=== PATIENT | male | born 1960 | race Caucasian/White ===

== ENCOUNTER → 2021-04-01 | Outpatient (REF) ==
--- NOTE | 2021-04-01 14:32 | REP ---
INDICATION: PAIN. COMPARISON: None. TECHNIQUE: AP, lateral, swimmer's and open mouth views of the cervical spine FINDINGS: Evaluation is significantly limited beyond the C4-5 level due to positioning and overlying soft tissue opacities. Osteopenia and moderate multilevel degenerative changes are suggested along with mild chronic 3 mm of anterolisthesis at C4-5 along with minimal endplate sclerosis and subtle disc space narrowing. IMPRESSION: Limited examination with findings as described above. If the patient remains symptomatic consider CT or MRI for further investigation <Electronically signed by Jeevan Boudreaux > 04/01/21 [id number]
--- NOTE | 2021-04-01 14:37 | REP ---
INDICATION: PAIN COMPARISON: None. TECHNIQUE: AP, lateral, coned-down views of the lumbar spine. FINDINGS: Alignment is maintained. Osteopenia and moderate multilevel degenerative changes are appreciated. Findings include chronic Schmorl's node along the superior endplate of L4 as well as very subtle chronic appearing compression deformity at L1 with less than 5% loss of superior vertebral body height. Disc spaces are relatively well maintained. IMPRESSION: 1. Age-related osteopenia and moderate multilevel degenerative changes <Electronically signed by Jeevan Boudreaux > 04/01/21 [id number]
== END ==
LOC: M PLAIMG 13:51
PROVIDERS: ATTEND Internal Medicine
DX: M81.0 Age-related osteoporosis without current pathological fracture (principal); M51.36 Other intervertebral disc degeneration, lumbar region; M51.47 Schmorl's nodes, lumbosacral region; M54.50 Low back pain, unspecified; M50.322 Other cervical disc degeneration at C5-C6 level; M43.12 Spondylolisthesis, cervical region